=== PATIENT | male | born 1955 | race Caucasian/White ===

== ENCOUNTER 2020-12-04 15:53 | Emergency (ER) | payer BC ==
[2020-12-04] MEDS: Morphine 4 MG/ML VIAL IVPUSH ONE (16:11)
[2020-12-04] MEDS: Sodium Chloride 0.9% 1,000 ML IV ONE (16:12)
[2020-12-04] MEDS: Ondansetron 4 MG/2 ML SDV IVPUSH STA (16:12)
--- NOTE | 2020-12-04 16:16 | EDM.PDOC ---
ED HPI GENERAL MEDICAL PROBLEM - General Chief Complaint: General Stated Complaint: ?kidney stone Time Seen by Provider: 12/04/20 16:14 Source of Information: Reports: Patient History Limitations: Reports: No Limitations - History of Present Illness INITIAL COMMENTS - FREE TEXT/NARRATIVE: This patient is a 65 year old male that presents to the ER. Patient reports that on Friday he started having left flank pain. Patient reports as the past couple days has gone by, the pain has been left flan to left groin. Patient reports that he has been taking Motrin twice a day and it has terrence helping except for today. Patient reports that he tried to wait until clinic opened tomorrow, but the pain became worse today. Patient denies n, v, d, f, chest pain, shortness of breath. He reports an urge to urinate. He reports he has been able to urinate. Onset Date: 12/01/20 Duration: Day(s): (3) Quality: Reports: Sharp, Other (shooting) Improves with: Reports: None Worsens with: Reports: None Associated Symptoms: Reports: No Other Symptoms Treatments INDEPENDENT DISTRIBUTOR: Reports: NSAIDS Left Groin Pain Score (Numeric/FACES): 9 - Related Data Allergies Allergy/AdvReac Type Severity Reaction Status Date / Time No Known Allergies Allergy Verified 12/04/20 16:18 Home Meds: Home Meds Aspirin [Halfprin] 81 mg PO DAILY 08/26/13 [History] Cholecalciferol (Vitamin D3) [Vitamin D] 2,000 unit PO DAILY 08/26/13 [History] Lisinopril 20 mg PO BID 08/06/18 [History] Metoprolol Tartrate 25 mg PO BID 08/06/18 [History] hydroCHLOROthiazide [Hydrochlorothiazide] 12.5 mg PO DAILY 08/06/18 [History] sitaGLIPtin Phos/Metformin HCl [Janumet 50-1,000 MG] 1 tab PO BID 08/06/18 [History] Multivitamin with Minerals [Multiple Vitamin] 1 tab PO DAILY 09/19/20 [History] Simvastatin 1 tab PO BEDTIME 09/19/20 [History] Ketorolac [Toradol] 10 mg PO Q6H PRN #32 tab 12/04/20 [Rx] Tamsulosin [Tamsulosin 24 Hr] 0.4 mg PO DAILY #7 cap.er 12/04/20 [Rx] ED ROS GENERAL - Review of Systems Review Of Systems: See Below Constitutional: Reports: No Symptoms HEENT: Reports: No Symptoms Respiratory: Reports: No Symptoms Cardiovascular: Reports: No Symptoms Endocrine: Reports: No Symptoms GI/Abdominal: Denies: Abdominal Pain, Diarrhea, Nausea, Vomiting : Reports: Flank Pain (left), Pain (left groin), Urgency Musculoskeletal: Reports: No Symptoms Skin: Reports: No Symptoms Neurological: Reports: No Symptoms Psychiatric: Reports: No Symptoms Hematologic/Lymphatic: Reports: No Symptoms Immunologic: Reports: No Symptoms ED EXAM, GENERAL - Physical Exam Exam: See Below Exam Limited By: No Limitations General Appearance: Alert, WD/WN, No Apparent Distress, Other (appears in pain, holding left flank. ) Respiratory/Chest: No Respiratory Distress, Lungs Clear, Normal Breath Sounds, No Accessory Muscle Use Cardiovascular: Normal Peripheral Pulses, Regular Rate, Rhythm, No Edema, No Gallop, No JVD, No Murmur, No Rub Peripheral Pulses: 2+: Radial (L), Radial (R) GI/Abdominal: Normal Bowel Sounds, Soft, Non-Tender, No Organomegaly, No Distention, No Abnormal Bruit, No Mass, Pelvis Stable (Male) Exam: Deferred Rectal (Males) Exam: Deferred Back Exam: Normal Inspection, Full Range of Motion. No: CVA Tenderness (L), CVA Tenderness (R) Extremities: Normal Inspection, Normal Range of Motion, Non-Tender, No Pedal Edema, Normal Capillary Refill Neurological: Alert, Oriented, Normal Cognition, Normal Gait, No Motor/Sensory Deficits Psychiatric: Normal Affect, Normal Mood Skin Exam: Warm, Dry, Intact, Normal Color, No Rash Course - Vital Signs Last Recorded V/S: Last Vital Signs Temp 97.3 F 12/04/20 15:53 Pulse 66 12/04/20 15:53 Resp 18 12/04/20 15:53 BP 182/91 H 12/04/20 17:02 Pulse Ox 96 12/04/20 15:53 - Orders/Labs/Meds Orders: Active Orders 24 hr Category Date Time Status Abdomen Pelvis wo Cont [CT] Stat Exams 12/04/20 16:21 Ordered Labs: Laboratory Tests 12/04/20 12/04/20 12/04/20 Range/Units 16:15 16:15 16:44 WBC 6.7 (4.0-11.0) 10^3/uL RBC 4.54 (4.50-6.00) x10^6/uL Hgb 14.3 (14.0-18.0) g/dL Hct 42.1 (42.0-52.0) % MCV 92.7 (83.0-97.0) fL MCH 31.5 (27.0-32.0) pg MCHC 34.0 (32.0-36.0) g/dL RDW Coeff of [place] 12.7 (11.0-15.0) % Plt Count 118 L (150-400) 10^3/uL Immature Gran % (Auto) 0.7 (0.0-4.9) % Neut % (Auto) 63.0 (41-71) % Lymph % (Auto) 22.0 L (24-44) % [place] % (Auto) 12.0 H (0-10) % Eos % (Auto) 1.9 (0-6) % Baso % (Auto) 0.4 (0-1) % Neut # (Auto) 4.19 (1.80-8.00) x10^3/uL Lymph # (Auto) 1.47 (0.60-5.00) 10^3/uL [place] # (Auto) 0.80 (0.00-1.50) 10^3/uL Eos # (Auto) 0.13 (0.00-1.50) 10^3/uL Baso # (Auto) 0.03 (0.00-0.50) 10^3/uL Immature Gran # (Auto) 0.05 (0.00-0.49) 10^3/uL Sodium 137 (136-145) mEq/L Potassium 4.3 (3.5-5.0) mEq/L Chloride 100 (98-106) mEq/L Carbon Dioxide 27 (21-32) mmol/L BUN 17 (7-18) mg/dL Creatinine 1.4 H (0.7-1.3) mg/dL Est Cr Clr Drug Dosing 58.51 mL/min Estimated GFR (MDRD) 51 L (>=60) mL/min Glucose 195 H D (75-99) mg/dL Calcium 8.9 (8.4-10.1) mg/dL Total Bilirubin 0.5 (0.0-1.0) mg/dL AST 27 (15-37) U/L ALT 35 (12-78) U/L Alkaline Phosphatase 60 (46-116) U/L Total Protein 7.9 (6.4-8.2) g/dL Albumin 3.8 (3.4-5.0) g/dL Amylase 68 (25-115) U/L Lipase 149 (73-393) U/L Urine Color Yellow (YELLOW) Urine Appearance Clear (CLEAR) Urine pH 6.0 (4.5-8.0) Ur Specific [place] 1.025 H (1.003-1.020) Urine Protein 30 H (NEGATIVE) mg/dL Urine Glucose (UA) Negative (NEGATIVE) mg/dL Urine Ketones Negative (NEGATIVE) mg/dL Urine Occult Blood Trace-intact H (NEGATIVE) Urine Nitrite Negative (NEGATIVE) Urine Bilirubin Negative (NEGATIVE) Urine Urobilinogen 0.2 (0.2-1.0) EU/dL Ur Leukocyte Esterase Negative (NEGATIVE) Urine RBC 0-5 (0-5) /HPF Urine WBC Not seen (0-5) /HPF Meds: Medications Discontinued Medications Generic Name Dose Route Start Last Admin Trade Name Freq PRN Reason Stop Dose Admin Sodium Chloride 1,000 mls @ 999 mls/hr 12/04/20 16:00 12/04/20 16:12 Normal Saline IV 12/04/20 17:00 999 mls/hr .BOLUS ONE Administration Ketorolac Tromethamine 30 mg 12/04/20 16:34 12/04/20 16:39 Ketorolac 30 Mg/Ml Sdv IVPUSH 12/04/20 16:35 30 mg ONETIME ONE Administration Ketorolac Tromethamine 1 packet 12/04/20 18:02 Take Home: Ketorolac 10 Mg Tab, 4 Tab Pack PO 12/04/20 18:03 ONETIME ONE Morphine Sulfate 4 mg 12/04/20 16:00 12/04/20 16:11 Morphine 4 Mg/Ml Vial IVPUSH 12/04/20 16:01 4 mg ONETIME ONE Administration Ondansetron HCl 4 mg 12/04/20 16:00 12/04/20 16:12 Ondansetron 4 Mg/2 Ml Sdv IVPUSH 12/04/20 16:01 4 mg STAT STA Administration Oxycodone/Acetaminophen 3 packet 12/04/20 18:02 Take Home: Acetaminophen/Oxycodone 325-5 Mg, 2 Tab Pack PO 12/04/20 18:03 ONETIME ONE Tamsulosin HCl 0.4 mg 12/04/20 16:35 12/04/20 16:41 Tamsulosin 0.4 Mg Cap.Er PO 12/04/20 16:36 0.4 mg ONETIME ONE Administration - Radiology Interpretation Free Text/Narrative:: CT Abd/Pelvis without contrast: Mild left hydronephrosis now involvesthe upper pole of the left kidney related to a 1.2cm central renal pelvic calculus. Additional punctate and 5mm left renal calculi are nonobstructive. Fluid attenuation right upper ple renal cyst. Interval resolved right hydronephrosis. Enlargement of the prostate gland. See report for other findings. CT Results Date: 12/04/20 CT Results Time: 17:46 - Re-Assessments/Exams Free Text/Narrative Re-Assessment/Exam: 12/04/20 17:58 I called and spoke to Dr. Marino urology at [facility] about this patient. He reports he will need Lithotripsy. Discharge home and have him followup in clinic this week. Send home with pain medication and Flomax. Will discharge. Patient does have hx of HTN, is HTN in ER. No CP, SOA, on cardiac symptoms and not HTN emergency. Will not treat here, he is scheduled to take his meds at home at this time, discharge home to do so. F/U with PCP about BP. Patient is near pain free he reports. Departure - Departure Time of Disposition: 18:00 Disposition: Home, Self-Care 01 Condition: Good Clinical Impression: Ureteral stone with hydronephrosis - Discharge Information *PRESCRIPTION DRUG MONITORING PROGRAM REVIEWED*: Not Applicable *COPY OF PRESCRIPTION DRUG MONITORING REPORT IN PATIENT DIMAS: Not Applicable Prescriptions: Tamsulosin [Tamsulosin 24 Hr] 0.4 mg PO DAILY #7 cap.er Ketorolac [Toradol] 10 mg PO Q6H PRN #32 tab PRN Reason: Pain Referrals: Sajan Lantigua PA-C [Primary Care Provider] - Forms: ED Department Discharge Additional Instructions: Followup with your primary care provider Followup with Urology by calling tomorrow for an appointment of your choice: I spoke to Dr. Marino at [facility] [phone] Return to the ER for worsening of condition or any emergent concerns such as severe pain, fever, vomiting Toradol 10mg 1 pill every 6 hours as needed for pain #4 take home, #32 sent to pharmacy: TAKE WITH FOOD AND/OR MILK Percocet 5/325mg 1 pill every 4 hours as needed for severe pain #6 take home: TAKE WITH FOOD AND/OR MILK Flomax 0.4mg 1 pill once a day #7 days no refill Increase fluid intake Sepsis Event Note (ED) - Evaluation Sepsis Screening Result: No Definite Risk - Focused Exam Vital Signs: Vital Signs Temp Pulse Resp BP Pulse Ox 12/04/20 17:02 182/91 H 12/04/20 15:53 97.3 F 66 18 200/96 H 96 - My Orders Last 24 Hours: My Active Orders 12/04/20 16:21 Abdomen Pelvis wo Cont [CT] Stat - Assessment/Plan Last 24 Hours: My Active Orders 12/04/20 16:21 Abdomen Pelvis wo Cont [CT] Stat Plan: PLEASE SEE RN NOTE FOR PFSH
[2020-12-04] MEDS: Ketorolac 30 MG/ML SDV IVPUSH ONE (16:39)
[2020-12-04] MEDS: Tamsulosin 0.4 MG Cap.ER PO ONE (16:41)
[2020-12-04] MEDS ORDERED: Acetaminophen/oxyCODONE 325-5 MG Tab ONE (17:44)
[2020-12-04] MEDS ORDERED: Ketorolac 10 MG Tab ONE (17:44)
[2020-12-04] MEDS: Take Home: Ketorolac 10 MG Tab, 4 Tab Pack PO ONE (18:19)
[2020-12-04] MEDS: Take Home: Acetaminophen/oxyCODONE 325-5 MG, 2 Tab Pack PO ONE (18:19)
== END 2020-12-04 18:20 | disposition home or self-care (01) ==
LOC: CC.ED 15:53
DX: N13.2 Hydronephrosis with renal and ureteral calculous obstruction (principal); I10 Essential (primary) hypertension; Z79.82 Long term (current) use of aspirin; Z79.899 Other long term (current) drug therapy
CPT/HCPCS: 36415; 74176; 80053; 81001; 82150; 83690; 85025; 96374; 96375; 99284-25; A9270-GY; J1885; J2270; J2405; J7030

== ENCOUNTER → 2023-06-13 | Day surgery (SDC) | payer BC, MEDICARE ==
[~2023-06-13] MED LIST: Flumazenil 0.1 MG/ML 10 ML MDV ONE; Ketamine 200 MG/20 ML MDV ONE; Lactated Ringers 1,000 ML IV SCH; Midazolam 1 MG/ML 2 ML SDV ONE; Propofol 200 MG/20 ML SDV ONE; ePHEDrine 50 MG/ML SDV ONE; fentaNYL 50 MCG/ML SDV ONE
== END ==
LOC: CC.SDS 06:58
PROVIDERS: ATTEND Family Medicine
DX: Z12.11 Encounter for screening for malignant neoplasm of colon (principal); D12.0 Benign neoplasm of cecum; D12.2 Benign neoplasm of ascending colon; D12.3 Benign neoplasm of transverse colon; D12.6 Benign neoplasm of colon, unspecified; K62.1 Rectal polyp; K57.30 Diverticulosis of large intestine without perforation or abscess without bleeding; I10 Essential (primary) hypertension; E11.3299 Type 2 diabetes mellitus with mild nonproliferative diabetic retinopathy without macular edema, unspecified eye; E78.5 Hyperlipidemia, unspecified; E55.9 Vitamin D deficiency, unspecified; E66.9 Obesity, unspecified; Z68.31 Body mass index [BMI] 31.0-31.9, adult; Z86.16 Personal history of COVID-19; Z79.84 Long term (current) use of oral hypoglycemic drugs; Z79.85 Long-term (current) use of injectable non-insulin antidiabetic drugs; Z79.899 Other long term (current) drug therapy
CPT/HCPCS: 00811; J2250; J2704; J3010; J3490; J7120

== ENCOUNTER 2025-03-11 11:46 | Emergency (ER) | payer OTHER ==
[2025-03-11 12:34] LABS: BASOPHILS ABSOLUTE AUTO 0.02 10^3/uL (0.00-0.50); BASOPHILS PERCENT AUTO 0.4 % (0-1); EOSINOPHILS ABSOLUTE AUTO 0.07 10^3/uL (0.00-1.50); EOSINOPHILS PERCENT AUTO 1.4 % (0-6); IMMATURE GRAN ABSOLUTE AUTO 0.04 10^3/uL (0.00-0.49); IMMATURE GRAN PERCENT AUTO 0.8 % (0.0-4.9); LYMPHOCYTES ABSOLUTE AUTO 0.82 10^3/uL (0.60-5.00); LYMPHOCYTES PERCENT AUTO 16.7 % (24-44); MONOCYTES ABSOLUTE AUTO 0.51 10^3/uL (0.00-1.50); MONOCYTES PERCENT AUTO 10.4 % (0-10); NEUTROPHILS ABSOLUTE AUTO 3.45 x10^3/uL (1.80-8.00); NEUTROPHILS PERCENT AUTO 70.3 % (41-71); PLATELET COUNT,PLT 119 10^3/uL (150-400); RED BLOOD CELL COUNT 4.55 x10^6/uL (4.50-6.00); WHITE BLOOD CELL COUNT,WBC 4.9 10^3/uL (4.0-11.0)
[2025-03-11 12:37] LABS: APPEARANCE,URINE CLEAR (CLEAR); GLUCOSE,URINE NEGATIVE (NEGATIVE); OCCULT BLOOD,URINE MODERATE (NEGATIVE)
[2025-03-11 12:47] LABS: ALANINE AMINOTRANSFERASE,ALT 49.0 U/L (12-78); ASPARTATE AMNIOTRANSFERASE,AST 39.0 U/L (15-37); BILIRUBIN TOTAL 0.6 mg/dL (0.0-1.0); BLOOD UREA NITROGEN,BUN 11.0 mg/dL (7-18); CARBON DIOXIDE,CO2 27.0 mmol/L (21-32); CHLORIDE,CL 101.0 mEq/L (98-106); CREATININE 1.3 mg/dL (0.7-1.3); EST CRCL DRUG DOSING (CG) 58.86 mL/min; GLUCOSE RANDOM 185.0 mg/dL (75-99); POTASSIUM,K 3.4 mEq/L (3.5-5.0); PROTEIN TOTAL,TP 7.2 g/dL (6.4-8.2); SODIUM,NA 140.0 mEq/L (136-145)
[2025-03-11 12:56] LABS: ESTIMATED GFR 59.0 mL/min (>=60)
[2025-03-11 13:00] LABS: SQUAMOUS EPITHELIAL CELLS,UR NOT SEEN /HPF (NOT SEEN)
[2025-03-11 20:10] VITALS: BP 133/78; PULSE 82
== END 2025-03-11 13:35 | disposition home or self-care (01) ==
LOC: CC.ED 11:46
DX: M54.50 Low back pain, unspecified (principal); I10 Essential (primary) hypertension; E78.00 Pure hypercholesterolemia, unspecified; E10.9 Type 1 diabetes mellitus without complications; Z79.899 Other long term (current) drug therapy; Z79.84 Long term (current) use of oral hypoglycemic drugs; V49.40XA Driver injured in collision with unspecified motor vehicles in traffic accident, initial encounter; Y92.410 Unspecified street and highway as the place of occurrence of the external cause
CPT/HCPCS: 36415; 71101-RT; 72128; 72131; 72170; 80053; 81001; 85025; 99284; 99285